=== PATIENT | male | born 1940 | race Caucasian/White ===

== ENCOUNTER 2017-12-22 10:23 | Inpatient (IN) | payer MEDICARE, BC ==
[~2017-12-22] VITALS: Ht 177.8 cm; Wt 79.5 kg
[~2017-12-22 10:23] MED LIST: APIX5TAB3 PO; ENOX40SY7 SQ; FINA5TAB11 PO; FLO0.4C PO; HYDR-4353 PO; LEVO500T2 PO; LOSA1TAB39 PO; MAGN400T6 PO; OXYC10TA57 PO
[2017-12-22] MEDS ORDERED: normal saline 1000ML IV soln IVB ONE (10:45)
[2017-12-22] MEDS ORDERED: ondansetron/PF 4mg/2ml inj IV ONE (10:45)
[2017-12-22] MEDS: morphine 4 MG/ML inj SYRINge IV PRN ×2 (11:00→13:08)
[2017-12-22 11:17] LABS: ALANINE AMINOTRANSFERASE 28 U/L (12-78); ALBUMIN/GLOBULIN RATIO 0.8 (1.1-1.5); ALKALINE PHOSPHATASE 163 IU/L (46-116); ANION GAP 13 (8-16); ASPARTATE AMINO TRANSFERASE 19 U/L (10-37); BLOOD UREA NITROGEN 26 MG/DL (7-18); BUN/CREATININE RATIO 28.3 (5.4-32.0); CALCIUM 8.4 MG/DL (8.5-10.1); CHLORIDE 103 MMOL/L (99-107); CREATININE 0.92 MG/DL (0.60-1.10); GLUCOSE 152 MG/DL (70-104); LIPASE 189 U/L (73-393); POTASSIUM 3.7 MMOL/L (3.5-5.1); SODIUM 140 MMOL/L (135-145); TOTAL CARBON DIOXIDE 24.1 MMOL/L (24-32); TOTAL PROTEIN 6.8 G/DL (6.4-8.2); eGFR 79 ML/MIN
[2017-12-22 11:26] LABS: BASOPHILS % (AUTO) 0.3 % (0-1); EOSINOPHILS # (AUTO) 0.2 X10'3 (0-0.9); EOSINOPHILS % (AUTO) 1.6 % (0-6); HEMATOCRIT 31.6 % (42.0-52.0); HEMOGLOBIN 10.2 g/dl (14.0-17.9); LYMPHOCYTES # (AUTO) 1.2 X10'3 (1.1-4.8); LYMPHOCYTES % (AUTO) 10.5 % (21-51); MEAN CORPUSCULAR HEMOGLOBIN 26.1 PG (27.0-31.0); MEAN CORPUSCULAR HGB CONC 32.3 % (33.0-36.5); MEAN CORPUSCULAR VOLUME 80.8 FL (78-98); MEAN PLATELET VOLUME 7.7 FL (7.4-10.4); MONOCYTES # (AUTO) 0.6 X10'3 (0-0.9); MONOCYTES % (AUTO) 5.5 % (2-12); NEUTROPHILS # (AUTO) 9.3 X10'3 (1.8-7.7); NEUTROPHILS % (AUTO) 82.1 % (42-75); PLATELET COUNT 368 X10'3 (140-440); RED BLOOD COUNT 3.91 X10'6 (4.70-6.10); RED CELL DISTRIBUTION WIDTH 16.4 % (11.5-14.5); WHITE BLOOD COUNT 11.3 X10'3 (4.5-11.0)
[2017-12-22 12:21] LABS: CLARITY,URINE SLIGHTLY CLOUDY (Clear); COLOR,URINE YELLOW (Yellow); GLUCOSE, URINE NEGATIVE (Neg); KETONES,URINE NEGATIVE (Neg); LEUKOCYTE ESTERASE ,URINE LARGE (Neg); NITRITES, URINE NEGATIVE (Neg); OCCULT BLOOD,URINE LARGE (Neg); PH,URINE 6.5 (4.8-8.0); PROTEIN,URINE 30 mg/dl (Neg); UROBILINOGEN,URINE 0.2 E.U/dL (0.2-1.0)
[2017-12-22 12:23] LABS: UA COLLECTION TYPE FOLEY CATH
[2017-12-22 12:28] LABS: CAL OXALATE CRYSTALS FEW /HPF (NEGATIVE); RBC,URINE TNTC /HPF (0-2); SQUAMOUS EPITHELIAL CELL,UR FEW /LPF (FEW); WBC CLUMPS,URINE FEW /HPF (NEGATIVE); WBC,URINE TNTC /HPF (0-4)
[2017-12-22 12:29] LABS: BACTERIA,URINE 1+ /HPF (Neg)
[2017-12-22] MEDS ORDERED: CefTRIAXone 2gm/D5W 50ml 50 ML IV ONE (12:55)
[2017-12-22] MEDS ORDERED: CARV-50 PO (13:22)
[2017-12-22] MEDS ORDERED: magnesium 4gm in 100ml NS 100 ML IV PRN (13:25)
[2017-12-22] MEDS ORDERED: potassium Cl 20 mEq SR tablet PO PRN (13:25)
[2017-12-22] MEDS ORDERED: magnesium 1gm/100ml D5W IVPB 100 ML IV PRN (13:25)
[2017-12-22] MEDS ORDERED: morphine 2 MG/ML inj. syringe IV PRN (13:25)
[2017-12-22] MEDS ORDERED: ondansetron/PF 4mg/2ml inj IV PRN (13:25)
[2017-12-22] MEDS ORDERED: magnesium hydroxide 30ml (MOM) UD suspension PO PRN (13:25)
[2017-12-22] MEDS ORDERED: mag hydrox/Alum hydrox/simeth 30ml oral suspension PO PRN (13:25)
[2017-12-22] MEDS ORDERED: potassium Cl 40MEQ/NS 500ml 500 ML IV PRN ×2 (13:25)
[2017-12-22] MEDS ORDERED: bisacodyl 10mg suppository rectal RC PRN (13:25)
[2017-12-22] MEDS ORDERED: acetaminophen 325mg tablet PO PRN (13:25)
[2017-12-22] MEDS ORDERED: magnesium Cl slow-release 64mg tablet PO PRN (13:25)
[2017-12-22] MEDS ORDERED: TRAM50TA2 PO (13:28)
[2017-12-22 14:30] VITALS: BP 124/64
[2017-12-22] MEDS: potassium Cl 20mEq in NS 1,000 ML IV SCH (14:40)
[2017-12-22] MEDS: apixaban 5mg tablet PO SCH (19:38)
[2017-12-22] MEDS: docusate sod 100mg capsule PO SCH (19:38)
[2017-12-22] MEDS: tamsulosin 0.4mg capsule PO SCH (19:38)
[2017-12-22] MEDS: HYDROcodone/acetaminophen 10/325mg tab PO PRN (19:43)
[2017-12-22 20:00] VITALS: BP 126/72
[2017-12-22] MEDS: morphine 2 MG/ML inj. syringe IV PRN (20:15)
[2017-12-23] VITALS: BP 125/65
[2017-12-23] MEDS: potassium Cl 20mEq in NS 1,000 ML IV SCH ×2 (03:58→19:36)
[2017-12-23] MEDS: morphine 2 MG/ML inj. syringe IV PRN ×3 (04:26→19:42)
[2017-12-23 05:06] LABS: ALBUMIN 2.6 G/DL (3.4-5.0); ANION GAP 10 (8-16); BLOOD UREA NITROGEN 18 MG/DL (7-18); BUN/CREATININE RATIO 26.9 (5.4-32.0); CALCIUM 8.6 MG/DL (8.5-10.1); CHLORIDE 107 MMOL/L (99-107); CREATININE 0.67 MG/DL (0.60-1.10); GLUCOSE 98 MG/DL (70-104); MAGNESIUM 2.1 MG/DL (1.5-2.4); POTASSIUM 4.2 MMOL/L (3.5-5.1); SODIUM 143 MMOL/L (135-145); TOTAL CARBON DIOXIDE 25.9 MMOL/L (24-32); eGFR > 90 ML/MIN
[2017-12-23 05:18] LABS: BASOPHILS % (AUTO) 0.2 % (0-1); EOSINOPHILS # (AUTO) 0.3 X10'3 (0-0.9); EOSINOPHILS % (AUTO) 3.7 % (0-6); HEMATOCRIT 29.3 % (42.0-52.0); HEMOGLOBIN 9.4 g/dl (14.0-17.9); LYMPHOCYTES # (AUTO) 2.1 X10'3 (1.1-4.8); LYMPHOCYTES % (AUTO) 24.9 % (21-51); MEAN CORPUSCULAR HEMOGLOBIN 26.3 PG (27.0-31.0); MEAN CORPUSCULAR VOLUME 82.1 FL (78-98); MONOCYTES # (AUTO) 0.6 X10'3 (0-0.9); MONOCYTES % (AUTO) 7.8 % (2-12); NEUTROPHILS # (AUTO) 5.2 X10'3 (1.8-7.7); NEUTROPHILS % (AUTO) 63.4 % (42-75); PLATELET COUNT 323 X10'3 (140-440); RED BLOOD COUNT 3.57 X10'6 (4.70-6.10); RED CELL DISTRIBUTION WIDTH 16.9 % (11.5-14.5); WHITE BLOOD COUNT 8.2 X10'3 (4.5-11.0)
[2017-12-23 07:00] VITALS: BP 149/80
[2017-12-23] MEDS: tamsulosin 0.4mg capsule PO SCH ×2 (07:23→19:35)
[2017-12-23] MEDS: CefTRIAXone/D5W-Rocephin 1gm 50 ML IV SCH (07:24)
[2017-12-23] MEDS: docusate sod 100mg capsule PO SCH ×2 (07:24→19:35)
[2017-12-23] MEDS: apixaban 5mg tablet PO SCH ×2 (07:24→19:35)
[2017-12-23] MEDS: finasteride 5mg tablet PO SCH (07:24)
[2017-12-23] MEDS: K and/or MAG REPLACEMENT MC SCH (08:00)
[2017-12-23] MEDS ORDERED: enoxaparin 40mg/0.4ml syringe SUBCUT SCH (08:00)
[2017-12-23 11:00] VITALS: BP 114/72
[2017-12-23] MEDS: HYDROcodone/acetaminophen 10/325mg tab PO PRN (17:31)
[2017-12-23 20:00] VITALS: BP 154/72
[2017-12-24] VITALS: BP 116/69
[2017-12-24 04:41] LABS: BASOPHILS % (AUTO) 0.3 % (0-1); EOSINOPHILS # (AUTO) 0.2 X10'3 (0-0.9); EOSINOPHILS % (AUTO) 2.9 % (0-6); HEMOGLOBIN 9.2 g/dl (14.0-17.9); LYMPHOCYTES # (AUTO) 1.7 X10'3 (1.1-4.8); LYMPHOCYTES % (AUTO) 21.3 % (21-51); MEAN CORPUSCULAR HEMOGLOBIN 25.7 PG (27.0-31.0); MEAN CORPUSCULAR HGB CONC 31.7 % (33.0-36.5); MEAN CORPUSCULAR VOLUME 81.2 FL (78-98); MEAN PLATELET VOLUME 7.8 FL (7.4-10.4); MONOCYTES # (AUTO) 0.6 X10'3 (0-0.9); MONOCYTES % (AUTO) 7.5 % (2-12); NEUTROPHILS # (AUTO) 5.3 X10'3 (1.8-7.7); PLATELET COUNT 344 X10'3 (140-440); RED BLOOD COUNT 3.58 X10'6 (4.70-6.10); RED CELL DISTRIBUTION WIDTH 16.5 % (11.5-14.5); WHITE BLOOD COUNT 7.9 X10'3 (4.5-11.0)
[2017-12-24 04:57] LABS: ALBUMIN 2.5 G/DL (3.4-5.0); ANION GAP 9 (8-16); BLOOD UREA NITROGEN 15 MG/DL (7-18); BUN/CREATININE RATIO 18.8 (5.4-32.0); CALCIUM 7.8 MG/DL (8.5-10.1); CHLORIDE 107 MMOL/L (99-107); GLUCOSE 123 MG/DL (70-104); POTASSIUM 3.5 MMOL/L (3.5-5.1); SODIUM 141 MMOL/L (135-145); TOTAL CARBON DIOXIDE 24.9 MMOL/L (24-32); eGFR > 90 ML/MIN
[2017-12-24 07:17] VITALS: BP 98/74
[2017-12-24] MEDS: HYDROcodone/acetaminophen 10/325mg tab PO PRN ×3 (07:44→19:07)
[2017-12-24] MEDS: morphine 2 MG/ML inj. syringe IV PRN (07:57)
[2017-12-24] MEDS: docusate sod 100mg capsule PO SCH ×2 (07:58→21:11)
[2017-12-24] MEDS: CefTRIAXone/D5W-Rocephin 1gm 50 ML IV SCH (07:58)
[2017-12-24] MEDS: apixaban 5mg tablet PO SCH ×2 (07:58→21:11)
[2017-12-24] MEDS: tamsulosin 0.4mg capsule PO SCH ×2 (07:58→21:11)
[2017-12-24] MEDS: finasteride 5mg tablet PO SCH (07:59)
[2017-12-24] MEDS: K and/or MAG REPLACEMENT MC SCH (08:00)
[2017-12-24] MEDS: potassium Cl 20mEq in NS 1,000 ML IV SCH (08:22)
[2017-12-24 10:56] VITALS: BP 146/69
[2017-12-24 18:30] VITALS: BP 127/70
[2017-12-25] VITALS: BP 151/76
[2017-12-25] MEDS: HYDROcodone/acetaminophen 10/325mg tab PO PRN ×4 (00:59→21:54)
[2017-12-25] MEDS: potassium Cl 20mEq in NS 1,000 ML IV SCH ×3 (01:00→17:01)
[2017-12-25 06:05] LABS: ALBUMIN 2.4 G/DL (3.4-5.0); ANION GAP 10 (8-16); BLOOD UREA NITROGEN 12 MG/DL (7-18); BUN/CREATININE RATIO 17.6 (5.4-32.0); CALCIUM 7.6 MG/DL (8.5-10.1); CHLORIDE 104 MMOL/L (99-107); CREATININE 0.68 MG/DL (0.60-1.10); GLUCOSE 88 MG/DL (70-104); MAGNESIUM 1.7 MG/DL (1.5-2.4); POTASSIUM 3.4 MMOL/L (3.5-5.1); SODIUM 139 MMOL/L (135-145); TOTAL CARBON DIOXIDE 25.1 MMOL/L (24-32); eGFR > 90 ML/MIN
[2017-12-25 07:00] VITALS: BP 148/73
[2017-12-25 07:42] LABS: BASOPHILS % (AUTO) 0.5 % (0-1); EOSINOPHILS # (AUTO) 0.2 X10'3 (0-0.9); LYMPHOCYTES # (AUTO) 2.2 X10'3 (1.1-4.8); LYMPHOCYTES % (AUTO) 31.2 % (21-51); MEAN CORPUSCULAR VOLUME 81.2 FL (78-98); MEAN PLATELET VOLUME 8.1 FL (7.4-10.4); MONOCYTES # (AUTO) 0.6 X10'3 (0-0.9); MONOCYTES % (AUTO) 8.6 % (2-12); NEUTROPHILS % (AUTO) 56.7 % (42-75); PLATELET COUNT 319 X10'3 (140-440); RED CELL DISTRIBUTION WIDTH 15.3 % (11.5-14.5)
[2017-12-25 07:43] LABS: HEMATOCRIT 27.8 % (42.0-52.0); HEMOGLOBIN 9.2 g/dl (14.0-17.9); MEAN CORPUSCULAR HGB CONC 33.2 % (33.0-36.5); RED BLOOD COUNT 3.42 X10'6 (4.70-6.10)
[2017-12-25] MEDS: tamsulosin 0.4mg capsule PO SCH ×2 (08:26→21:50)
[2017-12-25] MEDS: apixaban 5mg tablet PO SCH ×2 (08:26→21:51)
[2017-12-25] MEDS: sertraline 50mg tablet PO SCH (08:26)
[2017-12-25] MEDS: CefTRIAXone/D5W-Rocephin 1gm 50 ML IV SCH (08:26)
[2017-12-25] MEDS: docusate sod 100mg capsule PO SCH ×2 (08:26→21:50)
[2017-12-25] MEDS: finasteride 5mg tablet PO SCH (08:28)
[2017-12-25] MEDS: K and/or MAG REPLACEMENT MC SCH (08:30)
[2017-12-25] MEDS: potassium Cl 20 mEq SR tablet PO PRN ×2 (08:30→12:44)
[2017-12-25 11:00] VITALS: BP 150/87
[2017-12-25 19:00] VITALS: BP 112/64
[2017-12-26 00:16] VITALS: BP 160/77
[2017-12-26 04:30] VITALS: BP 160/80
[2017-12-26 05:41] LABS: BASOPHILS % (AUTO) 0.3 % (0-1); EOSINOPHILS # (AUTO) 0.1 X10'3 (0-0.9); EOSINOPHILS % (AUTO) 1.5 % (0-6); HEMATOCRIT 29.8 % (42.0-52.0); HEMOGLOBIN 9.8 g/dl (14.0-17.9); LYMPHOCYTES # (AUTO) 2.4 X10'3 (1.1-4.8); LYMPHOCYTES % (AUTO) 28.1 % (21-51); MEAN CORPUSCULAR HEMOGLOBIN 26.4 PG (27.0-31.0); MEAN CORPUSCULAR VOLUME 80.2 FL (78-98); MEAN PLATELET VOLUME 8.2 FL (7.4-10.4); MONOCYTES # (AUTO) 0.7 X10'3 (0-0.9); MONOCYTES % (AUTO) 7.7 % (2-12); NEUTROPHILS # (AUTO) 5.4 X10'3 (1.8-7.7); NEUTROPHILS % (AUTO) 62.4 % (42-75); PLATELET COUNT 341 X10'3 (140-440); RED BLOOD COUNT 3.72 X10'6 (4.70-6.10); RED CELL DISTRIBUTION WIDTH 15.4 % (11.5-14.5); WHITE BLOOD COUNT 8.6 X10'3 (4.5-11.0)
[2017-12-26 05:49] LABS: ALBUMIN 2.6 G/DL (3.4-5.0); ANION GAP 7 (8-16); BLOOD UREA NITROGEN 14 MG/DL (7-18); BUN/CREATININE RATIO 20.6 (5.4-32.0); CALCIUM 8.2 MG/DL (8.5-10.1); CHLORIDE 104 MMOL/L (99-107); CREATININE 0.68 MG/DL (0.60-1.10); GLUCOSE 86 MG/DL (70-104); MAGNESIUM 1.6 MG/DL (1.5-2.4); POTASSIUM 3.7 MMOL/L (3.5-5.1); SODIUM 137 MMOL/L (135-145); TOTAL CARBON DIOXIDE 25.9 MMOL/L (24-32); eGFR > 90 ML/MIN
[2017-12-26 07:14] VITALS: BP 162/75
[2017-12-26] MEDS: K and/or MAG REPLACEMENT MC SCH (08:00)
[2017-12-26] MEDS: finasteride 5mg tablet PO SCH (08:18)
[2017-12-26] MEDS: apixaban 5mg tablet PO SCH ×2 (08:18→20:46)
[2017-12-26] MEDS: tamsulosin 0.4mg capsule PO SCH ×2 (08:19→20:46)
[2017-12-26] MEDS: sertraline 50mg tablet PO SCH (08:20)
[2017-12-26] MEDS: docusate sod 100mg capsule PO SCH ×2 (08:20→20:46)
[2017-12-26] MEDS: CefTRIAXone/D5W-Rocephin 1gm 50 ML IV SCH (08:21)
[2017-12-26] MEDS: lactobacillus rhamnosus 10,000 MMU CELLS/CAPSULE PO SCH ×2 (08:21→20:46)
[2017-12-26 11:52] VITALS: BP 129/70
[2017-12-26] MEDS: morphine 2 MG/ML inj. syringe IV PRN (12:07)
[2017-12-26] MEDS: carVEDilol 12.5mg tablet PO SCH (12:09)
[2017-12-26] MEDS: HYDROcodone/acetaminophen 10/325mg tab PO PRN ×2 (13:33→20:47)
[2017-12-26] MEDS: potassium Cl 20mEq in NS 1,000 ML IV SCH (15:06)
[2017-12-26 19:00] VITALS: BP 141/75
[2017-12-26 23:00] VITALS: BP 100/73
[2017-12-27 04:39] LABS: ALBUMIN 2.5 G/DL (3.4-5.0); ANION GAP 10 (8-16); BASOPHILS % (AUTO) 0.3 % (0-1); BLOOD UREA NITROGEN 15 MG/DL (7-18); BUN/CREATININE RATIO 23.8 (5.4-32.0); CALCIUM 7.8 MG/DL (8.5-10.1); CHLORIDE 108 MMOL/L (99-107); CREATININE 0.63 MG/DL (0.60-1.10); EOSINOPHILS # (AUTO) 0.2 X10'3 (0-0.9); EOSINOPHILS % (AUTO) 2.4 % (0-6); GLUCOSE 88 MG/DL (70-104); HEMATOCRIT 27.9 % (42.0-52.0); HEMOGLOBIN 9.3 g/dl (14.0-17.9); LYMPHOCYTES # (AUTO) 2.1 X10'3 (1.1-4.8); LYMPHOCYTES % (AUTO) 30.6 % (21-51); MAGNESIUM 1.6 MG/DL (1.5-2.4); MEAN CORPUSCULAR HEMOGLOBIN 27.1 PG (27.0-31.0); MEAN CORPUSCULAR HGB CONC 33.5 % (33.0-36.5); MONOCYTES # (AUTO) 0.6 X10'3 (0-0.9); MONOCYTES % (AUTO) 8.1 % (2-12); NEUTROPHILS # (AUTO) 3.9 X10'3 (1.8-7.7); NEUTROPHILS % (AUTO) 58.6 % (42-75); PLATELET COUNT 317 X10'3 (140-440); POTASSIUM 3.8 MMOL/L (3.5-5.1); RED BLOOD COUNT 3.44 X10'6 (4.70-6.10); RED CELL DISTRIBUTION WIDTH 15.8 % (11.5-14.5); SODIUM 141 MMOL/L (135-145); TOTAL CARBON DIOXIDE 23.3 MMOL/L (24-32); WHITE BLOOD COUNT 6.8 X10'3 (4.5-11.0); eGFR > 90 ML/MIN
[2017-12-27] MEDS: potassium Cl 20mEq in NS 1,000 ML IV SCH ×2 (04:42→17:07)
[2017-12-27 08:00] VITALS: BP 159/72
[2017-12-27] MEDS: K and/or MAG REPLACEMENT MC SCH (08:00)
[2017-12-27] MEDS: carVEDilol 12.5mg tablet PO SCH (09:24)
[2017-12-27] MEDS: docusate sod 100mg capsule PO SCH ×2 (09:24→19:22)
[2017-12-27] MEDS: tamsulosin 0.4mg capsule PO SCH ×2 (09:25→19:22)
[2017-12-27] MEDS: finasteride 5mg tablet PO SCH (09:26)
[2017-12-27] MEDS: apixaban 5mg tablet PO SCH ×2 (09:26→19:22)
[2017-12-27] MEDS: lactobacillus rhamnosus 10,000 MMU CELLS/CAPSULE PO SCH ×2 (09:27→19:22)
[2017-12-27] MEDS: sertraline 50mg tablet PO SCH (09:28)
[2017-12-27] MEDS: CefTRIAXone/D5W-Rocephin 1gm 50 ML IV SCH (09:30)
[2017-12-27] MEDS: HYDROcodone/acetaminophen 10/325mg tab PO PRN ×3 (09:38→19:22)
[2017-12-27] MEDS: piperacillin/tazo 3.375gm/50ml 50 ML IV SCH ×3 (10:20→19:20)
[2017-12-27] MEDS: fluconazole-Diflucan 100MG/NS 50 ML IV SCH (11:06)
[2017-12-27 12:42] VITALS: BP 135/77
[2017-12-27] MEDS ORDERED: LIDOcaine 2% 10ml TOPICAL JELLY (Urojet) MM ONE (17:05)
[2017-12-27 19:00] VITALS: BP 138/75
[2017-12-28] VITALS: BP 145/77
[2017-12-28] MEDS: piperacillin/tazo 3.375gm/50ml 50 ML IV SCH ×4 (02:29→20:14)
[2017-12-28 05:20] LABS: ALANINE AMINOTRANSFERASE 48 U/L (12-78); ALBUMIN 2.6 G/DL (3.4-5.0); ALBUMIN/GLOBULIN RATIO 0.7 (1.1-1.5); ALKALINE PHOSPHATASE 136 IU/L (46-116); ANION GAP 9 (8-16); ASPARTATE AMINO TRANSFERASE 25 U/L (10-37); BILIRUBIN,TOTAL 0.6 MG/DL (0.1-1.0); BLOOD UREA NITROGEN 14 MG/DL (7-18); BUN/CREATININE RATIO 17.5 (5.4-32.0); CALCIUM 8.1 MG/DL (8.5-10.1); CHLORIDE 105 MMOL/L (99-107); GLUCOSE 96 MG/DL (70-104); MAGNESIUM 1.6 MG/DL (1.5-2.4); PHOSPHORUS 3.8 MG/DL (2.3-4.5); POTASSIUM 3.6 MMOL/L (3.5-5.1); SODIUM 140 MMOL/L (135-145); TOTAL CARBON DIOXIDE 25.7 MMOL/L (24-32); TOTAL PROTEIN 6.1 G/DL (6.4-8.2); eGFR > 90 ML/MIN
[2017-12-28 05:50] LABS: BASOPHILS % (AUTO) 0.5 % (0-1); EOSINOPHILS # (AUTO) 0.2 X10'3 (0-0.9); EOSINOPHILS % (AUTO) 2.8 % (0-6); HEMOGLOBIN 9.7 g/dl (14.0-17.9); LYMPHOCYTES # (AUTO) 0.8 X10'3 (1.1-4.8); LYMPHOCYTES % (AUTO) 11.1 % (21-51); MEAN CORPUSCULAR HEMOGLOBIN 27.1 PG (27.0-31.0); MEAN CORPUSCULAR HGB CONC 33.5 % (33.0-36.5); MEAN CORPUSCULAR VOLUME 80.8 FL (78-98); MEAN PLATELET VOLUME 7.9 FL (7.4-10.4); MONOCYTES # (AUTO) 0.4 X10'3 (0-0.9); MONOCYTES % (AUTO) 5.4 % (2-12); NEUTROPHILS # (AUTO) 5.9 X10'3 (1.8-7.7); NEUTROPHILS % (AUTO) 80.2 % (42-75); PLATELET COUNT 333 X10'3 (140-440); RED BLOOD COUNT 3.59 X10'6 (4.70-6.10); RED CELL DISTRIBUTION WIDTH 15.3 % (11.5-14.5); WHITE BLOOD COUNT 7.3 X10'3 (4.5-11.0)
[2017-12-28 07:00] VITALS: BP 143/74
[2017-12-28] MEDS: apixaban 5mg tablet PO SCH ×2 (07:44→19:08)
[2017-12-28] MEDS: lactobacillus rhamnosus 10,000 MMU CELLS/CAPSULE PO SCH ×2 (07:44→19:08)
[2017-12-28] MEDS: docusate sod 100mg capsule PO SCH ×2 (07:44→19:08)
[2017-12-28] MEDS: carVEDilol 12.5mg tablet PO SCH (07:44)
[2017-12-28] MEDS: finasteride 5mg tablet PO SCH (07:44)
[2017-12-28] MEDS: sertraline 50mg tablet PO SCH (07:44)
[2017-12-28] MEDS: tamsulosin 0.4mg capsule PO SCH ×2 (07:44→19:08)
[2017-12-28] MEDS: K and/or MAG REPLACEMENT MC SCH (08:00)
[2017-12-28] MEDS: fluconazole-Diflucan 100MG/NS 50 ML IV SCH (08:23)
[2017-12-28] MEDS: HYDROcodone/acetaminophen 10/325mg tab PO PRN ×2 (08:23→19:09)
[2017-12-28] MEDS: potassium Cl 20mEq in NS 1,000 ML IV SCH (08:23)
[2017-12-28 11:11] VITALS: BP 109/64
[2017-12-28 20:00] VITALS: BP 160/84
[2017-12-29] VITALS: BP 145/77
[2017-12-29] MEDS: piperacillin/tazo 3.375gm/50ml 50 ML IV SCH ×4 (02:16→19:42)
[2017-12-29] MEDS: potassium Cl 20mEq in NS 1,000 ML IV SCH ×3 (02:18→21:42)
[2017-12-29 06:11] LABS: ALANINE AMINOTRANSFERASE 34 U/L (12-78); ALBUMIN 2.5 G/DL (3.4-5.0); ALBUMIN/GLOBULIN RATIO 0.7 (1.1-1.5); ALKALINE PHOSPHATASE 121 IU/L (46-116); ANION GAP 10 (8-16); ASPARTATE AMINO TRANSFERASE 18 U/L (10-37); BILIRUBIN,TOTAL 0.6 MG/DL (0.1-1.0); BLOOD UREA NITROGEN 12 MG/DL (7-18); BUN/CREATININE RATIO 14.1 (5.4-32.0); CALCIUM 8.1 MG/DL (8.5-10.1); CHLORIDE 105 MMOL/L (99-107); CREATININE 0.85 MG/DL (0.60-1.10); GLUCOSE 89 MG/DL (70-104); MAGNESIUM 1.6 MG/DL (1.5-2.4); PHOSPHORUS 3.6 MG/DL (2.3-4.5); POTASSIUM 3.4 MMOL/L (3.5-5.1); SODIUM 139 MMOL/L (135-145); TOTAL CARBON DIOXIDE 23.9 MMOL/L (24-32); TOTAL PROTEIN 5.9 G/DL (6.4-8.2); eGFR 87 ML/MIN
[2017-12-29 06:40] LABS: BASOPHILS % (AUTO) 0.2 % (0-1); EOSINOPHILS # (AUTO) 0.3 X10'3 (0-0.9); EOSINOPHILS % (AUTO) 4.1 % (0-6); HEMATOCRIT 27.5 % (42.0-52.0); HEMOGLOBIN 9.3 g/dl (14.0-17.9); LYMPHOCYTES # (AUTO) 1.4 X10'3 (1.1-4.8); LYMPHOCYTES % (AUTO) 22.2 % (21-51); MEAN CORPUSCULAR HGB CONC 33.7 % (33.0-36.5); MEAN CORPUSCULAR VOLUME 80.1 FL (78-98); MEAN PLATELET VOLUME 8.1 FL (7.4-10.4); MONOCYTES # (AUTO) 0.6 X10'3 (0-0.9); MONOCYTES % (AUTO) 8.8 % (2-12); NEUTROPHILS # (AUTO) 4.1 X10'3 (1.8-7.7); NEUTROPHILS % (AUTO) 64.7 % (42-75); PLATELET COUNT 311 X10'3 (140-440); RED BLOOD COUNT 3.44 X10'6 (4.70-6.10); RED CELL DISTRIBUTION WIDTH 15.3 % (11.5-14.5); WHITE BLOOD COUNT 6.4 X10'3 (4.5-11.0)
[2017-12-29] MEDS: K and/or MAG REPLACEMENT MC SCH (07:48)
[2017-12-29 08:00] VITALS: BP 147/82
[2017-12-29] MEDS: sertraline 50mg tablet PO SCH (08:02)
[2017-12-29] MEDS: fluconazole-Diflucan 100MG/NS 50 ML IV SCH (08:02)
[2017-12-29] MEDS: docusate sod 100mg capsule PO SCH ×2 (08:02→19:42)
[2017-12-29] MEDS: apixaban 5mg tablet PO SCH ×2 (08:03→19:42)
[2017-12-29] MEDS: finasteride 5mg tablet PO SCH (08:03)
[2017-12-29] MEDS: carVEDilol 12.5mg tablet PO SCH (08:03)
[2017-12-29] MEDS: lactobacillus rhamnosus 10,000 MMU CELLS/CAPSULE PO SCH ×2 (08:03→19:42)
[2017-12-29] MEDS: tamsulosin 0.4mg capsule PO SCH ×2 (08:03→19:42)
[2017-12-29] MEDS: HYDROcodone/acetaminophen 10/325mg tab PO PRN ×2 (08:03→19:56)
[2017-12-29] MEDS ORDERED: magnesium 4gm in 100ml NS 100 ML IV PRN (11:45)
[2017-12-29] MEDS ORDERED: magnesium 1gm/100ml D5W IVPB 100 ML IV PRN (11:45)
[2017-12-29] MEDS ORDERED: potassium Cl 20 mEq SR tablet PO PRN (11:45)
[2017-12-29] MEDS ORDERED: potassium Cl 40MEQ/NS 500ml 500 ML IV PRN ×2 (11:45)
[2017-12-29] MEDS ORDERED: magnesium Cl slow-release 64mg tablet PO PRN (11:45)
[2017-12-29 12:00] VITALS: BP 155/74
[2017-12-29] MEDS: potassium Cl 20 mEq SR tablet PO PRN ×3 (12:23→20:48)
[2017-12-29 20:00] VITALS: BP 154/72
[2017-12-30] VITALS: BP 142/80
[2017-12-30] MEDS: piperacillin/tazo 3.375gm/50ml 50 ML IV SCH ×4 (01:40→21:08)
[2017-12-30] MEDS: HYDROcodone/acetaminophen 10/325mg tab PO PRN ×3 (04:23→21:11)
[2017-12-30 05:24] LABS: BASOPHILS % (AUTO) 0.3 % (0-1); EOSINOPHILS # (AUTO) 0.1 X10'3 (0-0.9); EOSINOPHILS % (AUTO) 1.3 % (0-6); HEMATOCRIT 29.6 % (42.0-52.0); HEMOGLOBIN 9.7 g/dl (14.0-17.9); LYMPHOCYTES # (AUTO) 1.7 X10'3 (1.1-4.8); LYMPHOCYTES % (AUTO) 27.3 % (21-51); MEAN CORPUSCULAR HEMOGLOBIN 26.4 PG (27.0-31.0); MEAN CORPUSCULAR HGB CONC 32.7 % (33.0-36.5); MEAN CORPUSCULAR VOLUME 80.6 FL (78-98); MEAN PLATELET VOLUME 8.1 FL (7.4-10.4); MONOCYTES # (AUTO) 0.6 X10'3 (0-0.9); MONOCYTES % (AUTO) 10.3 % (2-12); NEUTROPHILS # (AUTO) 3.7 X10'3 (1.8-7.7); NEUTROPHILS % (AUTO) 60.8 % (42-75); PLATELET COUNT 323 X10'3 (140-440); RED BLOOD COUNT 3.67 X10'6 (4.70-6.10); RED CELL DISTRIBUTION WIDTH 15.3 % (11.5-14.5); WHITE BLOOD COUNT 6.1 X10'3 (4.5-11.0)
[2017-12-30 05:50] LABS: ALANINE AMINOTRANSFERASE 36 U/L (12-78); ALBUMIN 2.6 G/DL (3.4-5.0); ALBUMIN/GLOBULIN RATIO 0.7 (1.1-1.5); ALKALINE PHOSPHATASE 129 IU/L (46-116); ANION GAP 9 (8-16); ASPARTATE AMINO TRANSFERASE 17 U/L (10-37); BILIRUBIN,TOTAL 0.5 MG/DL (0.1-1.0); BLOOD UREA NITROGEN 10 MG/DL (7-18); BUN/CREATININE RATIO 12.5 (5.4-32.0); CALCIUM 8.1 MG/DL (8.5-10.1); CHLORIDE 105 MMOL/L (99-107); GLUCOSE 102 MG/DL (70-104); MAGNESIUM 1.7 MG/DL (1.5-2.4); PHOSPHORUS 3.1 MG/DL (2.3-4.5); POTASSIUM 3.8 MMOL/L (3.5-5.1); SODIUM 139 MMOL/L (135-145); TOTAL CARBON DIOXIDE 25.1 MMOL/L (24-32); TOTAL PROTEIN 6.2 G/DL (6.4-8.2); eGFR > 90 ML/MIN
[2017-12-30 07:30] VITALS: BP 156/80
[2017-12-30] MEDS: sertraline 50mg tablet PO SCH (07:56)
[2017-12-30] MEDS: tamsulosin 0.4mg capsule PO SCH ×2 (07:56→21:10)
[2017-12-30] MEDS: finasteride 5mg tablet PO SCH (07:56)
[2017-12-30] MEDS: lactobacillus rhamnosus 10,000 MMU CELLS/CAPSULE PO SCH ×2 (07:56→21:10)
[2017-12-30] MEDS: carVEDilol 12.5mg tablet PO SCH (07:57)
[2017-12-30] MEDS: docusate sod 100mg capsule PO SCH ×2 (07:57→21:10)
[2017-12-30] MEDS: K and/or MAG REPLACEMENT MC SCH (07:57)
[2017-12-30] MEDS: apixaban 5mg tablet PO SCH ×2 (07:57→21:10)
[2017-12-30] MEDS ORDERED: fluconazole 100mg tablet PO SCH (08:00)
[2017-12-30] MEDS: HYDROcodone/acetaminophen 5mg/325mg tablet PO PRN (08:44)
[2017-12-30 10:50] VITALS: BP 138/80
[2017-12-30] MEDS: potassium Cl 20mEq in NS 1,000 ML IV SCH (12:13)
[2017-12-30 20:00] VITALS: BP 140/82
[2017-12-31] VITALS: BP 145/74
[2017-12-31] MEDS: piperacillin/tazo 3.375gm/50ml 50 ML IV SCH ×2 (02:43→07:48)
[2017-12-31] MEDS: potassium Cl 20mEq in NS 1,000 ML IV SCH (02:43)
[2017-12-31 06:45] LABS: BASOPHILS % (AUTO) 0.4 % (0-1); EOSINOPHILS # (AUTO) 0.2 X10'3 (0-0.9); EOSINOPHILS % (AUTO) 3.1 % (0-6); HEMATOCRIT 29.3 % (42.0-52.0); HEMOGLOBIN 9.4 g/dl (14.0-17.9); LYMPHOCYTES # (AUTO) 1.8 X10'3 (1.1-4.8); LYMPHOCYTES % (AUTO) 28.4 % (21-51); MEAN CORPUSCULAR HEMOGLOBIN 25.6 PG (27.0-31.0); MEAN CORPUSCULAR HGB CONC 32.2 % (33.0-36.5); MEAN CORPUSCULAR VOLUME 79.4 FL (78-98); MONOCYTES # (AUTO) 0.6 X10'3 (0-0.9); MONOCYTES % (AUTO) 9.6 % (2-12); NEUTROPHILS # (AUTO) 3.6 X10'3 (1.8-7.7); NEUTROPHILS % (AUTO) 58.5 % (42-75); PLATELET COUNT 323 X10'3 (140-440); RED BLOOD COUNT 3.69 X10'6 (4.70-6.10); RED CELL DISTRIBUTION WIDTH 15.8 % (11.5-14.5); WHITE BLOOD COUNT 6.2 X10'3 (4.5-11.0)
[2017-12-31 06:59] LABS: ALANINE AMINOTRANSFERASE 31 U/L (12-78); ALBUMIN 2.6 G/DL (3.4-5.0); ALBUMIN/GLOBULIN RATIO 0.7 (1.1-1.5); ALKALINE PHOSPHATASE 119 IU/L (46-116); ANION GAP 10 (8-16); ASPARTATE AMINO TRANSFERASE 15 U/L (10-37); BILIRUBIN,TOTAL 0.5 MG/DL (0.1-1.0); BLOOD UREA NITROGEN 12 MG/DL (7-18); BUN/CREATININE RATIO 15.4 (5.4-32.0); CALCIUM 8.3 MG/DL (8.5-10.1); CHLORIDE 105 MMOL/L (99-107); CREATININE 0.78 MG/DL (0.60-1.10); GLUCOSE 91 MG/DL (70-104); MAGNESIUM 1.7 MG/DL (1.5-2.4); PHOSPHORUS 3.2 MG/DL (2.3-4.5); POTASSIUM 3.4 MMOL/L (3.5-5.1); SODIUM 140 MMOL/L (135-145); TOTAL CARBON DIOXIDE 25.2 MMOL/L (24-32); TOTAL PROTEIN 6.3 G/DL (6.4-8.2); eGFR > 90 ML/MIN
[2017-12-31 07:00] VITALS: BP 147/63
[2017-12-31] MEDS: carVEDilol 12.5mg tablet PO SCH (07:48)
[2017-12-31] MEDS: potassium Cl 20 mEq SR tablet PO PRN ×3 (07:49→16:17)
[2017-12-31] MEDS: sertraline 50mg tablet PO SCH (07:49)
[2017-12-31] MEDS: docusate sod 100mg capsule PO SCH ×2 (07:49→21:16)
[2017-12-31] MEDS: lactobacillus rhamnosus 10,000 MMU CELLS/CAPSULE PO SCH ×2 (07:49→21:16)
[2017-12-31] MEDS: apixaban 5mg tablet PO SCH ×2 (07:49→21:16)
[2017-12-31] MEDS: finasteride 5mg tablet PO SCH (07:49)
[2017-12-31] MEDS: tamsulosin 0.4mg capsule PO SCH ×2 (07:49→21:16)
[2017-12-31] MEDS: K and/or MAG REPLACEMENT MC SCH (08:00)
[2017-12-31 11:00] VITALS: BP 159/81
[2017-12-31] MEDS: amoxicillin 250mg capsule PO SCH (16:17)
[2017-12-31] MEDS: HYDROcodone/acetaminophen 5mg/325mg tablet PO PRN (16:18)
[2017-12-31 20:00] VITALS: BP 145/78
[2017-12-31] MEDS: HYDROcodone/acetaminophen 10/325mg tab PO PRN (21:17)
[2018-01-01] VITALS: BP 157/81
[2018-01-01] MEDS: amoxicillin 250mg capsule PO SCH ×2 (00:24→08:34)
[2018-01-01 05:51] LABS: BASOPHILS % (AUTO) 0.4 % (0-1); EOSINOPHILS # (AUTO) 0.2 X10'3 (0-0.9); EOSINOPHILS % (AUTO) 2.9 % (0-6); HEMATOCRIT 29.7 % (42.0-52.0); LYMPHOCYTES # (AUTO) 2.5 X10'3 (1.1-4.8); LYMPHOCYTES % (AUTO) 39.8 % (21-51); MEAN CORPUSCULAR HGB CONC 33.7 % (33.0-36.5); MONOCYTES # (AUTO) 0.7 X10'3 (0-0.9); MONOCYTES % (AUTO) 10.5 % (2-12); NEUTROPHILS # (AUTO) 2.8 X10'3 (1.8-7.7); NEUTROPHILS % (AUTO) 46.4 % (42-75); PLATELET COUNT 312 X10'3 (140-440); RED BLOOD COUNT 3.71 X10'6 (4.70-6.10); RED CELL DISTRIBUTION WIDTH 15.6 % (11.5-14.5); WHITE BLOOD COUNT 6.2 X10'3 (4.5-11.0)
[2018-01-01 06:03] LABS: ALANINE AMINOTRANSFERASE 33 U/L (12-78); ALBUMIN 2.9 G/DL (3.4-5.0); ALBUMIN/GLOBULIN RATIO 0.8 (1.1-1.5); ALKALINE PHOSPHATASE 125 IU/L (46-116); ANION GAP 9 (8-16); ASPARTATE AMINO TRANSFERASE 10 U/L (10-37); BILIRUBIN,TOTAL 0.5 MG/DL (0.1-1.0); BLOOD UREA NITROGEN 12 MG/DL (7-18); BUN/CREATININE RATIO 14.8 (5.4-32.0); CALCIUM 8.6 MG/DL (8.5-10.1); CHLORIDE 106 MMOL/L (99-107); CREATININE 0.81 MG/DL (0.60-1.10); GLUCOSE 94 MG/DL (70-104); MAGNESIUM 1.8 MG/DL (1.5-2.4); PHOSPHORUS 3.6 MG/DL (2.3-4.5); POTASSIUM 3.9 MMOL/L (3.5-5.1); SODIUM 142 MMOL/L (135-145); TOTAL CARBON DIOXIDE 27.3 MMOL/L (24-32); TOTAL PROTEIN 6.5 G/DL (6.4-8.2); eGFR > 90 ML/MIN
[2018-01-01 07:00] VITALS: BP 153/77
[2018-01-01] MEDS: K and/or MAG REPLACEMENT MC SCH (08:00)
[2018-01-01] MEDS: lactobacillus rhamnosus 10,000 MMU CELLS/CAPSULE PO SCH (08:34)
[2018-01-01] MEDS: finasteride 5mg tablet PO SCH (08:34)
[2018-01-01] MEDS: docusate sod 100mg capsule PO SCH (08:34)
[2018-01-01] MEDS: sertraline 50mg tablet PO SCH (08:34)
[2018-01-01] MEDS: apixaban 5mg tablet PO SCH (08:34)
[2018-01-01] MEDS: carVEDilol 12.5mg tablet PO SCH (08:34)
[2018-01-01] MEDS: tamsulosin 0.4mg capsule PO SCH (08:35)
[2018-01-01] MEDS ORDERED: LACT1CAP26 PO (09:23)
[2018-01-01] MEDS ORDERED: COL100C PO (09:23)
[2018-01-01] MEDS ORDERED: AMO250C PO (09:23)
[2018-01-01] MEDS ORDERED: ZOL50T PO (09:23)
[2018-01-01 11:00] VITALS: BP 138/72
== END 2018-01-01 15:50 | disposition home health service (06) | DRG 699 ==
LOC: ER 10:23 → SUR 3N 13:24 → CMPBEDREQ 19:23
PROVIDERS: ADMIT Internal Medicine; ATTEND Family Medicine
DX: T83.511A Infection and inflammatory reaction due to indwelling urethral catheter, initial encounter (principal); E44.0 Moderate protein-calorie malnutrition; G89.29 Other chronic pain; M54.9 Dorsalgia, unspecified; N40.1 Benign prostatic hyperplasia with lower urinary tract symptoms; B95.2 Enterococcus as the cause of diseases classified elsewhere; D63.8 Anemia in other chronic diseases classified elsewhere; E87.6 Hypokalemia; F03.90 Unspecified dementia, unspecified severity, without behavioral disturbance, psychotic disturbance, mood disturbance, and anxiety; I10 Essential (primary) hypertension; R33.8 Other retention of urine; Z16.21 Resistance to vancomycin; Z23 Encounter for immunization; Z88.8 Allergy status to other drugs, medicaments and biological substances; Z79.899 Other long term (current) drug therapy; Z79.01 Long term (current) use of anticoagulants; Z75.1 Person awaiting admission to adequate facility elsewhere; Z87.442 Personal history of urinary calculi; Z68.25 Body mass index [BMI] 25.0-25.9, adult; Y92.89 Other specified places as the place of occurrence of the external cause
CPT/HCPCS: 36415; 71045; 74176; 80048; 80053; 81001; 83690; 83735; 84100; 85025; 87040; 87070; 87077; 87088; 87186; 96361; 96365; 96375; 97116; 97161; 97164; 97530; 99285; A4315; J0696; J1450; J2270; J2405; J2543; J7030

== ENCOUNTER 2018-03-11 05:15 | Emergency (ER) | payer MEDICARE, BC ==
[~2018-03-11] VITALS: Ht 175.3 cm; Wt 72.7 kg
[~2018-03-11 05:15] MED LIST changes: +AMO250C PO; +CARV-50 PO; +COL100C PO; -ENOX40SY7 SQ; -FINA5TAB11 PO; -FLO0.4C PO; +LACT1CAP26 PO; -LEVO500T2 PO; -LOSA1TAB39 PO; -MAGN400T6 PO; -OXYC10TA57 PO; +ZOL50T PO
[2018-03-11 06:52] VITALS: BP 130/75
== END 2018-03-11 07:16 ==
LOC: ER 05:16
DX: Z46.6 Encounter for fitting and adjustment of urinary device (principal); I10 Essential (primary) hypertension; G89.29 Other chronic pain; Z98.890 Other specified postprocedural states; Z88.8 Allergy status to other drugs, medicaments and biological substances; Z79.899 Other long term (current) drug therapy
CPT/HCPCS: 51702; 99284